=== PATIENT | male | born 1995 | race Caucasian/White ===

== ENCOUNTER 2017-10-27 08:05 | Emergency (ER) | payer OTHER ==
[2017-10-27 08:40] LABS: APPEARANCE CLEAR (CLEAR); BILIRUBIN NEGATIVE (NEGATIVE); COLOR YELLOW (YELLOW); GLUCOSE NEGATIVE (NEGATIVE); KETONE NEGATIVE (NEGATIVE); NITRITE NEGATIVE (NEGATIVE); PROTEIN TRACE mg/dL (NEGATIVE); SPECIFIC GRAVITY 1.015 (1.005-1.020); UROBILINOGEN NORMAL (NORMAL)
[2017-10-27 08:43] LABS: WHITE CELLS - URINE >50 /hpf (0-5)
[2017-10-27 08:45] LABS: MUCUS <1+ /lpf (NONE SEEN)
[2017-10-27 08:46] LABS: BACTERIA MODERATE /hpf (NONE SEEN)
== END 2017-10-27 11:15 | disposition home or self-care (01) ==
LOC: D.ER 08:05
PROVIDERS: Family Medicine
DX: N39.0 Urinary tract infection, site not specified (principal)